=== PATIENT | female | born 2000 | race Caucasian/White ===

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

== ENCOUNTER 2024-05-07 02:03 | Emergency (ER) | payer MEDICAID ==
[2024-05-07 04:06] VITALS: BP 115/66; PULSE 71; RESP 18; TEMP 36.83628; O2SAT 100
== END 2024-05-07 04:15 | disposition home or self-care (01) ==
LOC: ER 02:17
DX: R06.02 Shortness of breath (principal)
CPT/HCPCS: 99281

== ENCOUNTER 2024-10-20 07:38 | Emergency (ER) | payer MEDICAID ==
[~2024-10-20] VITALS: Ht 160 cm; Wt 58.9 kg
[2024-10-20 07:46] VITALS: TEMP 36.6; O2SAT 99
[2024-10-20] MEDS ORDERED: METH-653 MT (07:57)
[2024-10-20] MEDS: IBUPROFEN 600MG TABLET PO ONE (08:04)
[2024-10-20 08:16] VITALS: BP 121/82; PULSE 83; RESP 16; O2SAT 100
== END 2024-10-20 08:22 | disposition home or self-care (01) ==
LOC: ER 07:38
DX: M54.2 Cervicalgia (principal)
CPT/HCPCS: 99283